=== PATIENT | male | born 1990 | race Caucasian/White ===

== ENCOUNTER 2016-08-21 10:09 | Emergency (ER) | payer SELFPAY ==
[2016-08-21 10:23] VITALS: BP 115/79
--- NOTE | 2016-08-21 10:24 | EDM.PDOC ---
ED HPI GENERAL MEDICAL PROBLEM - General Chief Complaint: Neck Problem Stated Complaint: [id number] NECK AND RIGHT SHOULDER Time Seen by Provider: 08/21/16 10:23 Source of Information: Reports: Patient, Old Records, RN, RN Notes Reviewed History Limitations: Reports: No Limitations - History of Present Illness INITIAL COMMENTS - FREE TEXT/NARRATIVE: C/O onset of pain and tightness in the Rt shoulder and neck. Denies any specific injury. No radiating pain, numbness, or weakness. Onset: Gradual Duration: Day(s): (2-3), Constant Location: Reports: Neck, Upper Extremity, Right Quality: Reports: Ache, Other (spasms) Severity: Severe Improves with: Reports: Immobilization, Rest Worsens with: Reports: Movement Associated Symptoms: Reports: No Other Symptoms Right Shoulder Pain Score (Numeric/FACES): 9 - Related Data Allergies Allergy/AdvReac Type Severity Reaction Status Date / Time No Known Allergies Allergy Verified 08/21/16 10:18 Home Meds: Home Meds . [No Known Home Meds] 11/24/15 [History] Past Medical History - Past Health History Medical/Surgical History: Denies Medical/Surgical History Social & Family History - Family History Family Medical History: Noncontributory - Tobacco Use Smoking Status *Q: Current Every Day Smoker Years of Tobacco use: 8 Packs/Tins Daily: 0.2 - Caffeine Use Caffeine Use: Reports: Soda - Alcohol Use Days Per Week of Alcohol Use: 2 Number of Drinks Per Day: 7 Total Drinks Per Week: 14 - Recreational Drug Use Recreational Drug Use: No - Living Situation & Occupation Living situation: Reports: with Significant Other Occupation: Employed ED ROS GENERAL - Review of Systems Review Of Systems: ROS reveals no pertinent complaints other than HPI. ED EXAM, UPPER BACK/NECK PAIN - Physical Exam Exam: See Below Exam Limited By: No Limitations General Appearance: Alert, WD/WN, No Apparent Distress Throat/Mouth Exam: Normal Inspection Head Exam: Atraumatic, Normocephalic Neck Exam: Muscle Spasm (R>L lower cervical paraspinal), Painful Range of Motion , Paraspinous Muscle Tender. No: Spinous Processes Tender Nexus Criteria: No: Posterior, Midline Cervical Tenderness, Evidence of Intoxication, Altered Level of Consciousness, Focal Neurological Deficit, Painful Distraction Injuries Cardiovascular/Respiratory: Regular Rate, Rhythm, Normal Peripheral Pulses, Normal Breath Sounds Back Exam: Full Range of Motion, Muscle Spasm (Rt upper paraspinal and Rt trap.) . No: Vertebral Tenderness Extremities: Non-Tender, Other (Rt shoulder with non-painful ROM below shoulder level. Pain with abduction, an abduction limited to just slightly less than 90 degrees, pain improved w/R arm passively held at 90 degrees abduction). 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 As Tested, No Motor/Sensory Deficits, Alert, Normal Mood/Affect, Oriented x 3 Psychiatric: Normal Affect, Normal Mood Skin Exam: Normal Color, Warm/Dry Course - Vital Signs Last Recorded V/S: Last Vital Signs Temp 36.8 C 08/21/16 10:18 Pulse 76 08/21/16 10:18 Resp 18 08/21/16 10:18 BP 115/79 08/21/16 10:18 Pulse Ox 100 08/21/16 10:18 - Orders/Labs/Meds Orders: Active Orders 24 hr Category Date Time Status Cervical Spine 2V or 3V [CR] Urgent Exams 08/21/16 10:30 Ordered Shoulder Comp Rt [CR] Urgent Exams 08/21/16 10:30 Ordered Meds: Medications Discontinued Medications Generic Name Dose Route Start Last Admin Trade Name Freq PRN Reason Stop Dose Admin Ketorolac Tromethamine 60 mg 08/21/16 10:31 Toradol IM 08/21/16 10:32 ONETIME ONE - Radiology Interpretation Free Text/Narrative:: Xray C-spine: reversal of cervical lordotic curvature, no fractures; see Rad. report. Xray Rt shoulder: no fractures, no acute findings; see Rad. report. Departure - Departure Time of Disposition: 10:51 Disposition: Home, Self-Care 01 Condition: good Clinical Impression: Cervical paraspinal muscle spasm, Rotator cuff syndrome of right shoulder - Discharge Information Instructions: Muscle Cramps and Spasms, [id number], Impingement Syndrome, Rotator Cuff, Bursitis With Rehab-[facility] Forms: ED Department Discharge Additional Instructions: Rx: Naprosyn 500mg Rx: Cyclobenzaprine 10mg Moist hot packs to right should/neck as needed for muscle spasms. Rest right shoulder, maintain range of motion but no repetitive shoulder use or heavy lifting. Avoid overhead reaching with right shoulder. Follow up in clinic in 1 week if not improved. - My Orders Last 24 Hours: My Active Orders 08/21/16 10:30 Cervical Spine 2V or 3V [CR] Urgent Shoulder Comp Rt [CR] Urgent - Assessment/Plan Last 24 Hours: My Active Orders 08/21/16 10:30 Cervical Spine 2V or 3V [CR] Urgent Shoulder Comp Rt [CR] Urgent
[2016-08-21] MEDS ORDERED: Ketorolac 30 MG/ML SDV IM ONE (10:31)
== END 2016-08-21 11:21 | disposition home or self-care (01) ==
LOC: DL.ED 10:09
DX: M75.101 Unspecified rotator cuff tear or rupture of right shoulder, not specified as traumatic (principal); M62.838 Other muscle spasm; F17.210 Nicotine dependence, cigarettes, uncomplicated
CPT/HCPCS: 72040; 73030; 96372; 99283; J1885

== ENCOUNTER 2017-06-20 11:31 | Emergency (ER) | payer OTHER ==
[2017-06-20 12:21] VITALS: BP 107/67
[2017-06-20] MEDS ORDERED: Sodium Chloride 0.9% 10 ML Syringe FLUSH PRN (12:35)
--- NOTE | 2017-06-20 12:35 | EDM.PDOC ---
ED HPI GENERAL MEDICAL PROBLEM - General Chief Complaint: Fever Stated Complaint: COUGH, FEVER Time Seen by Provider: 06/20/17 12:34 Source of Information: Reports: Patient, RN, RN Notes Reviewed History Limitations: Reports: No Limitations - History of Present Illness INITIAL COMMENTS - FREE TEXT/NARRATIVE: C/O onset of cough June 17. Yesterday he reports sudden onset of fever , chills, body aches, and cough became worse. Denies shortness of breath or wheezing. Admits to sharp and burning pains in chest with coughing. Denies abdominal pain, N/V/D/C, sore throat, rash or stiff neck. 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 [No Known Home Meds] 11/24/15 [History] Past Medical History - Past Health History Medical/Surgical History: Denies Medical/Surgical History Social & Family History - Family History Family Medical History: Noncontributory - Tobacco Use Smoking Status *Q: Never Smoker Years of Tobacco use: 0 Packs/Tins Daily: 0 - Caffeine Use Caffeine Use: Reports: Soda - Alcohol Use Days Per Week of Alcohol Use: 2 Number of Drinks Per Day: 7 Total Drinks Per Week: 14 - Recreational Drug Use Recreational Drug Use: No - Living Situation & Occupation Living situation: Reports: with Significant Other Occupation: Employed ED ROS GENERAL - Review of Systems Review Of Systems: ROS reveals no pertinent complaints other than HPI. ED EXAM, GENERAL - Physical Exam Exam: See Below Exam Limited By: No Limitations General Appearance: Alert, WD/WN, No Apparent Distress, Other (acutely ill, but non-toxic appearing) Eye Exam: Bilateral Eye: Normal Inspection Ears: Normal External Exam, Normal Canal, Hearing Grossly Normal, Normal TMs Nose: No Blood, Nasal Drainage (clear, mild) Throat/Mouth: Normal Inspection, Normal Lips, Normal Teeth, Normal Gums, Normal Oropharynx, Normal Voice, No Airway Compromise Head: Atraumatic, Normocephalic Neck: Normal Inspection, Supple, Non-Tender, Full Range of Motion, Other (no nuchal rigidity). No: Lymphadenopathy (L), Lymphadenopathy (R) Respiratory/Chest: No Respiratory Distress, No Accessory Muscle Use, Chest Non- Tender, Crackles, Wheezing (rare/intermittent scattered mild wheezes). No: Rales, Rhonchi Cardiovascular: Regular Rate, Rhythm, No Edema, No Murmur GI/Abdominal: Normal Bowel Sounds, Soft, Non-Tender, No Organomegaly, No Distention, No Abnormal Bruit, No Mass (Male) Exam: Deferred Rectal (Males) Exam: Deferred Back Exam: Normal Inspection, Full Range of Motion. No: CVA Tenderness (L), CVA Tenderness (R) Extremities: Normal Inspection, Normal Range of Motion, Non-Tender, Normal Capillary Refill, No Pedal Edema Psychiatric: Normal Affect, Normal Mood Skin Exam: Warm, Dry, Intact, Normal Color, No Rash Course - Vital Signs Last Recorded V/S: Last Vital Signs Temp 40 C H 06/20/17 12:18 Pulse 98 06/20/17 12:18 Resp 16 06/20/17 12:18 BP 107/67 06/20/17 12:18 Pulse Ox 99 06/20/17 12:18 - Orders/Labs/Meds Orders: Active Orders 24 hr Category Date Time Status Peripheral IV Care [RC] . DIRECTED Care 06/20/17 12:36 Active Chest 2V [CR] Stat Exams 06/20/17 12:36 Taken COMPREHENSIVE METABOLIC PN,CMP [CHEM] Stat Lab 06/20/17 12:39 Received CULTURE STREP A CONFIRMATION [RM] Stat Lab 06/20/17 12:28 Results STREP SCRN A RAPID W CULT CONF [RM] Stat Lab 06/20/17 12:28 Results Sodium Chloride 0.9% [Normal Saline] 1,000 ml Med 06/20/17 12:37 Active IV .BOLUS Sodium Chloride 0.9% [Saline Flush] Med 06/20/17 12:35 Active 10 ml FLUSH ASDIRECTED PRN Peripheral IV Insertion Adult [OM.PC] Stat Oth 06/20/17 12:35 Ordered Medication Orders Sodium Chloride (Normal Saline) 1,000 mls @ 999 mls/hr IV .BOLUS ONE Stop: 06/20/17 13:37 Last Admin: 06/20/17 12:45 Dose: 999 mls/hr Sodium Chloride (Saline Flush) 10 ml FLUSH ASDIRECTED PRN PRN Reason: Keep Vein Open Last Admin: 06/20/17 12:37 Dose: 10 ml Labs: Laboratory Tests 06/20/17 06/20/17 06/20/17 Range/Units 12:30 12:30 12:39 WBC 7.1 (5.0-10.0) 10^3/uL RBC 5.07 (4.6-6.2) 10^6/uL Hgb 14.6 (14.0-18.0) g/dL Hct 42.0 (40.0-54.0) % MCV 82.8 (80-100) fL MCH 28.8 (27.0-34.0) pg MCHC 34.8 (33.0-35.0) g/dL Plt Count 100 L (150-450) 10^3/uL Neut % (Auto) 71.4 (42.2-75.2) % Lymph % (Auto) 13.7 L (20.5-50.1) % [place] % (Auto) 14.8 H (2-8) % Eos % (Auto) 0.0 L (1.0-3.0) % Baso % (Auto) 0.1 (0.0-1.0) % Urine Color Yellow (YELLOW) Urine Appearance Clear (CLEAR) Urine pH 6.0 (5.0-9.0) Ur Specific [place] 1.010 (1.005-1.030) Urine Protein Trace H (NEGATIVE) Urine Glucose (UA) Negative (NEGATIVE) Urine Ketones Negative (NEGATIVE) Urine Occult Blood Negative (NEGATIVE) Urine Nitrite Negative (NEGATIVE) Urine Bilirubin Negative (NEGATIVE) Urine Urobilinogen 1.0 (0.2-1.0) mg/dL Ur Leukocyte Esterase Negative (NEGATIVE) Urine RBC 0-5 /HPF Urine WBC 5-10 H (0-5/HPF) /HPF Ur Epithelial Cells Few /HPF Urine Bacteria Rare (0-FEW/HPF) /HPF Urine Mucus Many H /LPF Urine Other See note Urinalysis Comment Urine Opiates Screen Negative (NEGATIVE) Ur Oxycodone Screen Negative (NEGATIVE) Urine Methadone Screen Negative (NEGATIVE) Ur Barbiturates Screen Negative (NEGATIVE) U Tricyclic Antidepress Negative (NEGATIVE) Ur Phencyclidine Scrn Negative (NEGATIVE) Ur Amphetamine Screen Negative (NEGATIVE) U Methamphetamines Scrn Negative (NEGATIVE) Urine MDMA Screen Negative (NEGATIVE) U Benzodiazepines Scrn Negative (NEGATIVE) Urine Cocaine Screen Negative (NEGATIVE) U Marijuana (THC) Screen Negative (NEGATIVE) Meds: Medications Generic Name Dose Route Start Last Admin Trade Name Freq PRN Reason Stop Dose Admin Sodium Chloride 1,000 mls @ 999 mls/hr 06/20/17 12:37 06/20/17 12:45 Normal Saline IV 06/20/17 13:37 999 mls/hr .BOLUS ONE Administration Sodium Chloride 10 ml 06/20/17 12:35 06/20/17 12:37 Saline Flush FLUSH 10 ml ASDIRECTED PRN Administration Keep Vein Open Discontinued Medications Generic Name Dose Route Start Last Admin Trade Name Freq PRN Reason Stop Dose Admin Acetaminophen 975 mg 06/20/17 12:37 06/20/17 12:44 Tylenol PO 06/20/17 12:38 975 mg NOW ONE Administration Methylprednisolone Sodium Succinate 125 mg 06/20/17 13:06 Solu-Medrol IVPUSH 06/20/17 13:07 ONETIME ONE Oseltamivir Phosphate 75 mg 06/20/17 13:06 Tamiflu PO 06/20/17 13:07 ONETIME ONE - Radiology Interpretation Free Text/Narrative:: CXR: no focal consolidations, see Rad. report. Departure - Departure Time of Disposition: 13:19 Disposition: Home, Self-Care 01 Condition: Good Clinical Impression: Influenza - Discharge Information Instructions: Influenza, Adult Forms: ED Department Discharge Additional Instructions: Rx: Tamiflu 75mg Use Tylenol and/or Ibuprofen as needed for fevers. Follow directions on label for dosing and precautions. Rest and drink plenty of water. Follow up in clinic if not improving in 7 to 10 days. Return to ER if any breathing difficulties develop. - My Orders Last 24 Hours: My Active Orders 06/20/17 12:28 CULTURE STREP A CONFIRMATION [RM] Stat STREP SCRN A RAPID W CULT CONF [RM] Stat 06/20/17 12:35 Sodium Chloride 0.9% [Saline Flush] 10 ml FLUSH ASDIRECTED PRN Peripheral IV Insertion Adult [OM.PC] Stat 06/20/17 12:36 Peripheral IV Care [RC] . DIRECTED Chest 2V [CR] Stat 06/20/17 12:37 Sodium Chloride 0.9% [Normal Saline] 1,000 ml IV .BOLUS 06/20/17 12:39 COMPREHENSIVE METABOLIC PN,CMP [CHEM] Stat - Assessment/Plan Last 24 Hours: My Active Orders 06/20/17 12:28 CULTURE STREP A CONFIRMATION [RM] Stat STREP SCRN A RAPID W CULT CONF [RM] Stat 06/20/17 12:35 Sodium Chloride 0.9% [Saline Flush] 10 ml FLUSH ASDIRECTED PRN Peripheral IV Insertion Adult [OM.PC] Stat 06/20/17 12:36 Peripheral IV Care [RC] . DIRECTED Chest 2V [CR] Stat 06/20/17 12:37 Sodium Chloride 0.9% [Normal Saline] 1,000 ml IV .BOLUS 06/20/17 12:39 COMPREHENSIVE METABOLIC PN,CMP [CHEM] Stat
[2017-06-20] MEDS ORDERED: Sodium Chloride 0.9% 1,000 ML IV ONE (12:37)
[2017-06-20] MEDS ORDERED: Acetaminophen 325 MG Tab PO ONE (12:37)
[2017-06-20] MEDS ORDERED: Oseltamivir 75 MG Cap PO ONE (13:06)
[2017-06-20] MEDS ORDERED: methylPREDNISolone Sodium Succinate 125 MG/2 ML SDV IVPUSH ONE (13:06)
[2017-06-20 13:08] LABS: CHLORIDE,CL 95 mmol/L (101-111); SODIUM,NA 132 mmol/L (135-145)
--- NOTE | 2017-06-20 14:38 | CR ---
Clinical history: 27-year-old male with fever, cough and chest pain. Interpretation: Subtle peribronchial "cuffing" and some generalized mild air trapping suggesting bronchospasm but.. n o focal lobar pneumonia. No atelectasis/collapse. No lung mass or hilar lymphadenopathy. Normal cardiac silhouette without alveolar edema or dependent effusion. Left-sided aortic arch. No pneumothorax. CONCLUSION: Chronic mild bronchitis/bronchiolitis. No new lobar pneumonia or signs of heart failure c ompared to 14 May 2008.
== END 2017-06-20 14:14 | disposition home or self-care (01) ==
LOC: DL.ED 11:31
DX: J10.1 Influenza due to other identified influenza virus with other respiratory manifestations (principal)
CPT/HCPCS: 36415; 71046; 80053; 80305; 81001; 85025; 87081; 87430; 87804; 96361; 96374; 99283; A9270; J2930; J7030; J7050

== ENCOUNTER 2021-03-30 19:07 | Emergency (ER) | payer SELFPAY ==
[2021-03-30 19:34] VITALS: BP 119/80; PULSE 78
[2021-03-30 20:50] LABS: CORONAVIRUS COVID-19 NAA POSITIVE (NEGATIVE)
== END 2021-03-30 21:10 | disposition home or self-care (01) ==
LOC: DL.ED 19:07
DX: U07.1 COVID-19 (principal); Z72.0 Tobacco use
CPT/HCPCS: 0240U; 99283

== ENCOUNTER 2022-07-26 19:58 | Emergency (ER) | payer BC, OTHER ==
[2022-07-26] MEDS ORDERED: Sodium Chloride 0.9% 10 ML Syringe FLUSH PRN (20:07)
[2022-07-26 20:21] VITALS: BP 123/90; PULSE 71
[2022-07-26 20:21] LABS: BASOPHILS PERCENT AUTO 0.4 % (0.0-1.0); EOSINOPHILS PERCENT AUTO 2.5 % (1.0-3.0); HEMATOCRIT 40.9 % (40.0-54.0); LYMPHOCYTES PERCENT AUTO 29.2 % (20.5-50.1); MEAN CORPUSCULAR HEMOGLOBIN 27.7 pg (27.0-34.0); MEAN CORPUSCULAR HGB CONC 34.2 g/dL (33.0-35.0); MONOCYTES PERCENT AUTO 11.4 % (2-8); NEUTROPHILS PERCENT AUTO 56.5 % (42.2-75.2); PLATELET COUNT,PLT 207 10^3/uL (150-450); RED BLOOD CELL COUNT 5.05 10^6/uL (4.6-6.2); WHITE BLOOD CELL COUNT,WBC 7.5 10^3/uL (5.0-10.0)
[2022-07-26] MEDS ORDERED: Aspirin 81 MG Tab.Chew PO ONE (20:36)
[2022-07-26 20:39] LABS: PTT,PARTIAL THROMBOPLSTIN TIME 31.7 SEC (22.0-34.0)
[2022-07-26 20:44] LABS: A/G RATIO 1.2; ALANINE AMINOTRANSFERASE,ALT 20 U/L (16-63); ALBUMIN 4.2 g/dL (3.4-5.0); ALKALINE PHOSPHATASE 82 U/L (46-116); ANION GAP 11.8 mEq/L (7-13); ASPARTATE AMNIOTRANSFERASE,AST 14 U/L (15-37); BILIRUBIN TOTAL 0.5 mg/dL (0.2-1.0); BLOOD UREA NITROGEN,BUN 13 mg/dL (7-18); BUN/CREATININE RATIO 13.8 (No establ ref range); CALCIUM 8.8 mg/dL (8.5-10.1); CARBON DIOXIDE,CO2 30 mmol/L (21-32); CHLORIDE,CL 103 mmol/L (98-107); CREATININE 0.94 mg/dL (0.70-1.30); EST CRCL DRUG DOSING (CG) 98.04 mL/min; GLUCOSE RANDOM 80 mg/dL (70-99); MAGNESIUM 2.2 mg/dL (1.8-2.4); POTASSIUM,K 3.8 mmol/L (3.5-5.1); PROTEIN TOTAL,TP 7.8 g/dL (6.4-8.2); SODIUM,NA 141 mmol/L (136-145)
[2022-07-26 20:45] LABS: LACTIC ACID 0.9 mmol/L (0.4-2.0)
[2022-07-26 21:00] LABS: ESTIMATED GFR 109 mL/min (>=60)
[2022-07-26] MEDS ORDERED: Ketorolac 30 MG/ML SDV IVPUSH ONE (23:17)
== END 2022-07-26 23:26 | disposition home or self-care (01) ==
LOC: DL.ED 19:58
DX: R07.89 Other chest pain (principal); Z87.891 Personal history of nicotine dependence
CPT/HCPCS: 36415; 71045; 80053; 83605; 83735; 84145; 84484; 85025; 85610; 85730; 93005; 96374; 99285; A9270; J1885; J3490

== ENCOUNTER 2022-11-05 14:38 | Emergency (ER) | payer BC ==
[2022-11-05] MEDS ORDERED: Ketorolac 30 MG/ML SDV IM ONE (14:51)
[2022-11-05 14:56] VITALS: BP 108/74; PULSE 18
== END 2022-11-05 15:15 | disposition home or self-care (01) ==
LOC: DL.ED 14:38
DX: K02.9 Dental caries, unspecified (principal); I25.2 Old myocardial infarction
CPT/HCPCS: 96372; 99282; J1885

== ENCOUNTER 2024-08-12 22:02 | Emergency (ER) | payer BC | END 2024-08-12 22:16 | disposition left against medical advice (07) | LOC: DL.ED 22:02 | DX: Z53.21 Procedure and treatment not carried out due to patient leaving prior to being seen by health care provider (principal) ==